=== PATIENT | female | born 1945 | race Caucasian/White ===

== ENCOUNTER 2017-09-25 07:41 | Inpatient (IN) | payer OTHER ==
--- NOTE | 2017-09-25 06:28 | PDHPUP ---
History & Physical Update H&P update statement: This history and physical update is based on an assessment of the patient which was completed after admission or registration (within 24 hours), but prior to the surgery/procedure. H&P update: H&P reviewed & patient examined, no change in patient's condition since H&P completed
[2017-09-25] MEDS ORDERED: CHLORHEXIDINE GLUC HIBICLENS 118 ML BTL TP ONE (08:05)
[2017-09-25] MEDS ORDERED: THROMBIN (BOVINE) 5,000 UNIT VIAL TP ONE (08:06)
[2017-09-25] MEDS ORDERED: BACITRACIN 50,000 UNITS/10 ML SYR IRR ONE (08:06)
[2017-09-25] MEDS ORDERED: BUPIVACAINE 0.25% 30 ML SDV ONE (08:06)
[2017-09-25] MEDS ORDERED: ceFAZolin 2 GM/SWFI 2 GM/20 ML SYR IVP ONE (08:07)
[2017-09-25] MEDS ORDERED: GABAPENTIN 300 MG CAP PO ONE (08:07)
[2017-09-25] MEDS ORDERED: ACETAMINOPHEN 500 MG TAB PO ONE (08:07)
[2017-09-25] MEDS ORDERED: LR 1,000 ML IV ONE (08:10)
--- NOTE | 2017-09-25 08:51 | PDANEPAE ---
ANE Past Medical History - Cardiovascular History Hx Hypertension: Yes Hx Arrhythmias: No Hx Chest Pain: No Hx Coronary Artery / Peripheral Vascular Disease: No Hx CHF / Valvular Disease: No Hx Palpitations: No Cardiovascular History Comment: on 2 diuretics/Benicar - Pulmonary History Hx COPD: No Hx Asthma/Reactive Airway Disease: Yes Hx Recent Upper Respiratory Infection: No Hx Oxygen in Use at Home: No Hx Sleep Apnea: No Sleep Apnea Screening Result - Last Documented: Negative Pulmonary History Comment: environmental/food allergies-managed w/inhalers - Neurologic History Hx Cerebrovascular Accident: No Hx Seizures: No Hx Dementia: No Neurologic History Comment: H/A -R frontal "getting worse over the years" due to neck pain. - Endocrine History Hx Diabetes: No Endocrine History Comment: hypothyroid - Renal History Hx Renal Disorders: No - Liver History Hx Hepatic Disorders: No - Neurological & Psychiatric Hx Hx Neurological and Psychiatric Disorders: Yes Neurological / Psychiatric History Comment: tingling L hand/arm. Pain R arm. - Cancer History Hx Cancer: Yes Cancer History Comment: L breast tx w/chemo and RADS 2000. - Congenital Disorder History Hx Congenital Disorders: No - GI History Hx Gastrointestinal Disorders: No Gastrointestinal History Comment: resection for diverticulitis - Other Health History Other Health History: Cramping, "zaps" in legs. glaucoma - Chronic Pain History Chronic Pain: Yes (R arm,cramping) - Surgical History Prior Surgeries: bilat cataracts '17. 3 level lumbar fusion. colon resection. lap mary anne '13. bilat total knees '13. L Br Lumpectomy/lymph dissection 2000. R rotator cuff '00. R Great toe sx. L carpal tunnel '83 ANE Review of Systems Review of Systems: - Exercise capacity METS (RN): 4 METS ANE Patient History - Allergies Allergies/Adverse Reactions: banana Allergy (Verified 09/04/17 11:04) Swelling/neck,face,throat Beef Containing Products [beef] Allergy (Verified 09/04/17 11:04) Hives Beta-Blockers (Beta-Adrenergic Bloc Allergy (Verified 09/04/17 11:04) "ASTHMA ATTACKS" corn Allergy (Verified 09/04/17 11:04) Hives cucumber Allergy (Verified 09/04/17 11:04) Swelling/neck,face,throat egg [eggs] Allergy (Verified 09/04/17 11:04) Swelling/neck,face,throat Fish Containing Products [fish] Allergy (Verified 09/04/17 11:04) Swelling/neck,face,throat Iodinated Contrast- Oral and IV Dye Allergy (Verified 09/04/17 11:04) Hives lidocaine Allergy (Verified 09/04/17 11:04) "ASTHMA ATTACKS" linezolid [From Zyvox] Allergy (Verified 09/04/17 11:04) Other-Enter Comments melon Allergy (Verified 09/04/17 11:04) Swelling/neck,face,throat mirtazapine [From Remeron] Allergy (Verified 09/04/17 11:04) "ASTHMA ATTACKS" mustard Allergy (Verified 09/04/17 11:04) Itching peanut Allergy (Verified 09/04/17 11:04) "ASTHMA ATTACKS" Penicillins Allergy (Verified 09/04/17 10:58) Other-Enter Comments shellfish derived Allergy (Verified 09/04/17 11:04) Swelling/neck,face,throat Sulfa (Sulfonamide Antibiotics) Allergy (Verified 09/04/17 10:58) Swelling/neck,face,throat Tetracyclines Allergy (Verified 09/25/17 08:50) Other-Enter Comments trimipramine [From Surmontil] Allergy (Verified 09/25/17 08:50) "ASTHMA ATTACKS" wheat Allergy (Verified 09/04/17 11:04) Other-Enter Comments EGGPLANT Allergy (Uncoded 09/04/17 11:04) Swelling/neck,face,throat - Home Medications Home Medications: Acetaminophen [Tylenol 325mg (*)] 650 mg PO Q6 PRN 09/04/17 [Last Taken Unknown] Ascorbic Acid [Vitamin C 500 mg (*)] 500 mg PO DAILY 09/04/17 [Last Taken Unknown] Budesonide/Formoterol 160/4.5 [Symbicort 160-4.5 Mcg Inh (*)] 2 puffs IH BID 04/13 [Last Taken Unknown] Cholecalciferol Vit D3 [Vitamin D3 2000 units tab (OTC)] 4,000 units PO DAILY [Last Taken Unknown] DULoxetine [Cymbalta 60 MG (*)] 120 mg PO DAILY 09/04/17 [Last Taken Unknown] Esomeprazole Mag Trihydrate [Nexium] 40 mg PO BIDMEAL 09/04/17 [Last Taken Unknown] Furosemide [Lasix 20 MG (*)] 20 mg PO DAILY 09/04/17 [Last Taken Unknown] Gabapentin [Neurontin 300 MG (*)] 300 mg PO HS 09/04/17 [Last Taken Unknown] Herbals/Supplements -Info Only 1 ea PO DAILY 09/04/17 [Last Taken Unknown] Levalbuterol Inhaler [Xopenex Hfa Inhaler (*)] 1 puffs IH TID PRN 09/04/17 [ Last Taken Unknown] Levothyroxine [Synthroid 50 mcg (*)] 50 mcg PO DAILY06 09/04/17 [Last Taken Unknown] Montelukast Sodium [Singulair 10 mg (*)] 10 mg PO DAILY@1800 09/04/17 [Last Taken Unknown] Olmesartan Medoxomil [Benicar] 40 mg PO DAILY18 09/04/17 [Last Taken Unknown] Potassium Cl [Klor-Con 20 meq (*)] 20 meq PO DAILY 09/04/17 [Last Taken Unknown] Ranitidine HCl [Zantac] 300 mg PO HS 09/04/17 [Last Taken Unknown] cycloSPORINE 0.05% [Restasis Opht Drops(*)] 1 drop EACHEYE BID 09/04/17 [Last Taken Unknown] valACYclovir [Valtrex (*)] 500 mg PO DAILY 09/04/17 [Last Taken Unknown] Hydrochlorothiazide 09/09/17 [Last Taken Unknown] Qvar 09/09/17 [Last Taken Unknown] - Smoking Hx Smoking Status: Never smoked ANE Labs/Vital Signs - Vital Signs Height: 157.48 cm Weight: 65.771 kg ANE Physical Exam - Airway Neck exam: FROM Mallampati Score: Class 2 Mouth exam: normal dental/mouth exam - Pulmonary Pulmonary: no respiratory distress - Cardiovascular Cardiovascular: regular rate and rhythym - ASA Status ASA Status: II ANE Anesthesia Plan Anesthesia Plan: general endotracheal anesthesia
[2017-09-25] MEDS ORDERED: MIDAZOLAM 2 MG/2 ML VIAL ONE ×2 (09:17)
[2017-09-25] MEDS ORDERED: PROPOFOL/EMULSION 500 MG/50 ML BOTTLE IV ONE ×2 (09:17→10:25)
[2017-09-25] MEDS ORDERED: DEXAMETHASONE 4 MG/ML VIAL ONE (09:18)
[2017-09-25] MEDS ORDERED: METOCLOPRAMIDE 10 MG/2 ML VIAL ONE (09:19)
[2017-09-25] MEDS ORDERED: ROCURONIUM 50 MG/5 ML VIAL ONE (09:19)
[2017-09-25] MEDS ORDERED: LEVALBUTEROL INHALER 200 PUFFS/15 GM MDI IH PRN (09:23)
[2017-09-25] MEDS ORDERED: ACETAMINOPHEN 325 MG TAB PO PRN (09:23)
[2017-09-25] MEDS ORDERED: ONDANSETRON 4 MG/2 ML VIAL IVP PRN ×2 (09:26→13:00)
[2017-09-25] MEDS ORDERED: LACTULOSE 20 GM/30 ML UDCUP PO PRN (09:26)
[2017-09-25] MEDS ORDERED: morphINE PCA 30 MG/30 ML PCA IV PRN (09:26)
[2017-09-25] MEDS ORDERED: diphenhydrAMINE 25 MG CAP PO PRN (09:26)
[2017-09-25] MEDS ORDERED: ONDANSETRON DISINTEGRATING 4 MG TAB PO PRN (09:26)
[2017-09-25] MEDS ORDERED: HYDROmorphone HCL/NS 0.5 MG/ML SYR IVP PRN (09:26)
[2017-09-25] MEDS ORDERED: MAGNESIUM HYDROXIDE 30 ML UDCUP PO PRN (09:26)
[2017-09-25] MEDS ORDERED: oxyCODONE IR 5 MG TAB PO PRN (09:26)
[2017-09-25] MEDS ORDERED: NALOXONE HCL 0.4 MG/ML INJ IVP PRN ×2 (09:26→13:00)
[2017-09-25] MEDS ORDERED: POLYETHYLENE GLYCOL 3350 17 GM PKT PO PRN (09:26)
[2017-09-25] MEDS ORDERED: BISACODYL 10 MG SUPP PR PRN (09:26)
[2017-09-25] MEDS ORDERED: NS W/ 20 KCl/L 1,000 ML IV SCH (09:30)
[2017-09-25] MEDS ORDERED: HYDROmorphONE/DILAUDID 2 MG/ML INJ IVP PRN (13:00)
[2017-09-25] MEDS ORDERED: MEPERIDINE 25 MG/ML SYR IVP PRN (13:00)
[2017-09-25] MEDS ORDERED: fentaNYL 100 MCG/2 ML INJ ONE (13:00)
[2017-09-25] MEDS ORDERED: ALBUTEROL 3 ML DEYVIAL IH PRN (13:00)
--- NOTE | 2017-09-25 13:02 | POSTANESTH ---
Post Anesthetic Evaluation Cardiovascular Status: Similar to Pre-Op Cond Respiratory Status: Similar to Pre-op Cond. Level of Consciousness/Mental Status: Mildly Sleepy, Arousable Pain Control: Adequate, Prn Tx Ordered Nausea/Vomiting Control: Adequate, Prn Tx Ordered Complications Possibly Related to Anesthesia: None Noted
[2017-09-25] MEDS: fentaNYL 100 MCG/2 ML INJ IVP PRN ×2 (13:05→13:34)
--- NOTE | 2017-09-25 13:17 | SOAPPROG ---
SOAP Progress Note Assessment/Plan: Post Op Visit: S: Awake and alert. NAD O: AFVSS/PERRL/EOMI +lt touch 5/5 BUE = CDI neck soft and supple A/P: 72 yo female that is s/p ACDF C4/5 and C6/7 with anterior plate C4-C7 -collar at all times -take medications as directed -post op xrays in am -call NS with any changes or issues Objective: Vital Signs Temp Pulse Resp BP Pulse Ox 37.0 C 111 H 16 126/81 H 95 09/25/17 08:55 09/25/17 08:55 09/25/17 08:55 09/25/17 08:55 09/25/17 08:55 ICD10 Worksheet Patient Problems: Problems Problem Status Onset Arthrodesis status Acute Cervical stenosis of spine Acute - ICD10 Problem Qualifiers (1) Cervical stenosis of spine (2) Arthrodesis status
[2017-09-25] MEDS ORDERED: ceFAZolin 2 GM/DEXTROSE 100 ML IV SCH (14:00)
--- NOTE | 2017-09-25 14:27 | GOP ---
[f rep st] OPERATIVE REPORT DATE OF OPERATION: 09/25/2017 SURGEON: Santy Ceballos MD [facility] OPERATOR: Alexander Naidu PA-C. PREOPERATIVE DIAGNOSIS: 1. Cervical spondylolisthesis, C4-5. 2. Cervical degenerative disk disease C6-7. 3. 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 4. Right and left (but right more than left) cervical radiculopathy. POSTOPERATIVE DIAGNOSIS: 1. Cervical spondylolisthesis, C4-5. 2. Cervical degenerative disk disease C6-7. 3. 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 4. Right and left (but right more than left) cervical radiculopathy. PROCEDURE PERFORMED: 1. Anterior cervical diskectomy with decompression and arthrodesis at C4-5 and C6-7 (CPT Code 00119, 05482). 2. Anterior cervical instrumentation, 4 levels, C4, C5, C6, C7 (CPT Code 33940). 3. Placement of biomechanical intervertebral device C4-5, C6-7 (CPT Code 31873 x2). 4. Microscope. 5. Same-incision bone graft harvest. FINDINGS: ESTIMATED BLOOD LOSS: 25 cc. 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 She had courtney ateral cervical radiculopathy, right more than left, and had evidence of neural foraminal compromise at C6-7 and C4-5. On her MRI, the vertebral artery anatomy on the right at C4-5 was quite medial, an d I did not want to do a wide right C4-5 foraminotomy through the front, but I still suggested ACDF, arthrodesis, and this should eliminate the problem at C4-5. C6-7 was more typical in the vertebral a natomy. The risk of esophageal injury, carotid injury, recurrent laryngeal nerve injury, hoarseness, dysphagia, adjacent segment disease was discussed. She knew there was a chance surgery would fail t o eliminate her pain and she wanted to proceed. DESCRIPTION OF PROCEDURE: The patient was taken to the operating room, placed in supine position. G eneral anesthesia was begun. A midline shoulder roll was placed. Care was taken to pad all points o f contact. Her neck was kept neutral, but the occiput was extended. She was sterilely prepped and d raped in usual fashion. I made a transverse incision on the right side of the neck. The subcutaneou s tissue was dissected using Bovie cautery down through platysma. We then used a combination of evelyn p and blunt dissection and worked our way down medial to the sternocleidomastoid and medial to the ca rotid sheath to the prevertebral space. There was a large neurovascular structure crossing from the carotid sheath medially, right in the middle of our exposure. We immediately were able to expose C6- 7. We wanted to expose C4-5 as well, and C5-6, but we made a separate window above this neurovascula r structure itself. We did not see any evidence of recurrent laryngeal nerve activity. Nevertheless , we completely preserved this structure. We dissected the longus colli muscles off the spine at C4- 5, 5-6, 6-7, and then placed a self-retaining retractor rostrally. We placed distraction pins at C4- 5, distracted there, and then under the microscope, removed the disk and the cartilaginous endplates. We drilled and harvested subchondral bone for autologous grafting purposes. The C5 vertebral body was exceptionally small, but C4 was a normal size vertebral body. We chose the 8 x 14 x 11 mm cage. It was packed with bone autograft. We then opened the posterior longitudinal ligament, decompressed the thecal sac and the neural foramina bilaterally, but again we were not very aggressive on the rig ht-hand side. We did not have any significant bleeding, but we were able to decompress the proximal portion of the right C5 root, and we went somewhat wider on the left-hand side. We packed the cage w ith bone autograft, inserted it at C4-5, and got a nice fit. We then removed our distraction pins, d istracted at C6-7, and did likewise here. Here, the disk was degenerative. We drilled and got rid o f all of the disk material itself. We then drilled and harvested subchondral bone at C6-7. We sized for the larger cage at that level, but I felt like it was going to be slightly too deep at 14 mm of depth, and we elected to go with a 7 x 17 x 11 mm cage. We selected the cage, packed it with autolog ously harvested bone dust, and then opened the posterior longitudinal ligament, decompressed the thec al sac and the neural foramina bilaterally. At this level, we decompressed on each side just slightl y beyond the C7 pedicle on each side. A nice decompression was obtained. We inserted the cage. We then chose a 40 mm Medtronic Zevo plate, placed a single screw at C4, a single screw at C7. I was avendano ppy with positioning of the plate. We placed 4 screws in the C5 and C6 vertebral bodies, and then se quentially tightened these simultaneously. We use 15, 15 and 15 mm screws there. We also used 15 mm screws at C7 and 15 mm screws at C4. At C6, we lost capture of the 3.5 mm screw and I replaced this with a 15 mm rescue screw. We shot x-rays, confirming all of the hardware positioning, and the sher ent's right-sided C6 screw was slightly long, extending just slightly beyond the posterior cortex of C6, so we removed this and used a 13 mm screw. There was now a rescue screw on the right at C6. Thi s single plate spanning from C4-C7 got some reduction of the spondylolisthesis at C4-5, and I was pre tty happy with the anatomical alignment of her neck, although there was not complete reduction becaus e of the small caliber of the C5 and C6 vertebral bodies, but it was still much improved alignment. We final tightened the screws and confirmed this with the people in the room. The locking mechanism had been applied at all 4 of the levels. We then it achieved meticulous hemostasis, placed 0.25% Mar brian with epinephrine in the wound, and then closed the incision in multiple layers using Vicryl sut ures. Steri-Strips were applied to the skin. The patient was reversed from anesthesia, extubated, t ransferred to recovery room in stable condition. COMPLICATIONS: None. /[id number]/MODL
--- NOTE | 2017-09-25 14:58 | PDMN ---
Medical Necessity Medical necessity: Pt meets IP criteria per PA; est los >2 mn s/p ACDF C4/5 & C6 /7 with anterior plate C4-C7; admit for further monitoring, post op xrays, Morphine FUR STYLIST, IVFs & therapies; per progress note & order 09/25/17
[2017-09-25] MEDS: HYDROCODONE/APAP 5/325 TAB PO PRN ×2 (16:06→19:53)
[2017-09-25] MEDS ORDERED: NON-FORMULARY NEW DRUG (Olmesartan Medoxomil [Benicar] 40 MG) PO SCH (18:00)
[2017-09-25] MEDS: OLMESARTAN MEDOXOMIL 20 MG TAB PO SCH (18:12)
[2017-09-25] MEDS: ceFAZolin 2 GM/SWFI 2 GM/20 ML SYR IVP SCH (18:13)
[2017-09-25] MEDS: MONTELUKAST SODIUM 10 MG TAB PO SCH (18:13)
[2017-09-25] MEDS: PANTOPRAZOLE SODIUM 40 MG TAB PO SCH (18:13)
[2017-09-25] MEDS: FAMOTIDINE 20 MG TAB PO SCH (19:54)
[2017-09-25] MEDS: SENNOSIDES/DOCUSATE SODIUM TAB PO SCH (19:57)
[2017-09-25] MEDS ORDERED: NON-FORMULARY NEW DRUG (Ranitidine Hcl [Zantac] 300 MG) PO SCH (21:00)
[2017-09-25] MEDS: BUDESONIDE/FORMOTEROL 160/4.5 60 PUFFS/MDI IH SCH (22:11)
[2017-09-25] MEDS: cycloSPORINE 0.05% 30 DROPERETTE/BOX EACHEYE SCH (22:11)
[2017-09-25] MEDS: BECLOMETHASONE DIPROPIONATE IH SCH (22:12)
[2017-09-25] MEDS: GABAPENTIN 300 MG CAP PO SCH (22:12)
[2017-09-26] MEDS: ceFAZolin 2 GM/SWFI 2 GM/20 ML SYR IVP SCH (01:05)
[2017-09-26] MEDS: HYDROCODONE/APAP 5/325 TAB PO PRN ×5 (01:05→22:10)
[2017-09-26] MEDS: METHOCARBAMOL 750 MG TAB PO PRN ×3 (04:50→21:04)
[2017-09-26] MEDS: LEVOTHYROXINE 50 MCG TAB PO SCH (04:51)
[2017-09-26 05:19] LABS: PLATELET COUNT 433 10^3/uL (150-400)
--- NOTE | 2017-09-26 08:03 | NEUSURGPN ---
Date of Surgery: 09/25/17 Post Op Day: 1 Assessment/Plan: Assessment: 72 yo female that is s/p ACDF C4/5 and C6/7 with anterior plate C4- C7 POD #1 Plan: -s/p ACDF: Pt states that she feels better after surgery. She has some expected neck pain -PT/OT/ST pending -collar at all times -take medications as directed -post op xrays this am -continue with current pain control -call NS with any changes or issues -pt understands and agrees -pt seen by Dr Ceballos as well Subjective: Awake and alert. NAD. Eating/drinking and voiding. No f/c/n/v/d. No avendano/chest /abd or gu complaints. Objective: AFVSS/PERRLA/EOMI +lt touch 5/5 BUE/BLE = CDI neck soft and supple Neuro Check Frequency: per routine Urinary Catheter in Place: No - Physician Discussed Patient with : Tucker Patient Seen by : Tucker Neurosurgery Physical Exam - Vitals, I&O, Labs I and O 09/25/17 09/26/17 09/27/17 05:59 05:59 05:59 Intake Total 2800 Output Total 1820 Balance 980 Weight 65.771 kg Intake: Oral (ml) 1050 IV Intake (ml) 1750 Output: Urine (ml) 1800 Catheter 1800 Estimated Blood Loss (ml) 20 Other: Number of Voids Catheter 1 Vital Signs Temp Pulse Resp BP Pulse Ox 36.6 C 91 16 111/67 95 09/26/17 04:00 09/26/17 04:00 09/26/17 04:00 09/26/17 04:00 09/26/17 04:00 Laboratory Results 09/26/17 04:35 09/26/17 04:35 ICD10 Worksheet Patient Problems: Problems Problem Status Onset Arthrodesis status Acute Cervical stenosis of spine Acute - ICD10 Problem Qualifiers (1) Cervical stenosis of spine (2) Arthrodesis status
[2017-09-26] MEDS: PANTOPRAZOLE SODIUM 40 MG TAB PO SCH ×2 (08:16→17:39)
[2017-09-26] MEDS: DULoxetine 60 MG CAP PO SCH (08:17)
[2017-09-26] MEDS: FAMOTIDINE 20 MG TAB PO SCH ×2 (08:17→20:49)
[2017-09-26] MEDS: valACYclovir 500 MG TAB PO SCH (08:17)
[2017-09-26] MEDS: SENNOSIDES/DOCUSATE SODIUM TAB PO SCH ×2 (08:17→20:49)
[2017-09-26] MEDS: FUROSEMIDE 20 MG TAB PO SCH (08:17)
[2017-09-26] MEDS: HYDROCHLOROTHIAZIDE 12.5 MG CAP PO SCH (08:17)
[2017-09-26] MEDS: BECLOMETHASONE DIPROPIONATE IH SCH ×3 (09:39→20:14)
[2017-09-26] MEDS: BUDESONIDE/FORMOTEROL 160/4.5 60 PUFFS/MDI IH SCH ×2 (09:39→20:21)
[2017-09-26] MEDS: cycloSPORINE 0.05% 30 DROPERETTE/BOX EACHEYE SCH ×2 (09:40→20:49)
[2017-09-26] MEDS: [UNRECOGNIZED DRUG - OTHER] IH PRN ×2 (09:51→20:14)
--- NOTE | 2017-09-26 10:34 | ASMTCMCOM ---
CM Note CM Note Notes: Chart reviewed. 72 year old femeale s/p c-spine surgery, Per therapy [facility] recommended . Patient has had previous experience with with [facility]. Her son Edgardo is bedside and will provide support until he returns to his home in [place]. CM to follow. Plan: dc likely tomorrow with [facility] PT and OT Date Signed: 09/26/2017 10:34 AM Electronically Signed By:Chitra Rose RN
[2017-09-26] MEDS: POTASSIUM CL 20 MEQ TAB PO SCH (11:19)
[2017-09-26] MEDS: MONTELUKAST SODIUM 10 MG TAB PO SCH (17:38)
[2017-09-26] MEDS: OLMESARTAN MEDOXOMIL 20 MG TAB PO SCH (17:39)
[2017-09-26] MEDS: GABAPENTIN 300 MG CAP PO SCH (20:50)
[2017-09-27] MEDS: HYDROCODONE/APAP 5/325 TAB PO PRN ×2 (04:59→11:58)
[2017-09-27] MEDS: LEVOTHYROXINE 50 MCG TAB PO SCH (04:59)
[2017-09-27] MEDS: BECLOMETHASONE DIPROPIONATE IH SCH (08:16)
[2017-09-27] MEDS: [UNRECOGNIZED DRUG - OTHER] IH PRN (08:16)
[2017-09-27] MEDS: BUDESONIDE/FORMOTEROL 160/4.5 60 PUFFS/MDI IH SCH (08:28)
--- NOTE | 2017-09-27 08:36 | NEUSURGPN ---
Assessment/Plan: Assessment: 72 yo female that is s/p ACDF C4/5 and C6/7 with anterior plate C4- C7 POD #2 Plan: -s/p ACDF: Pt states that she feels better after surgery. She has some expected neck pain -PT/OT/ST pending -collar at all times -take medications as directed -post op xrays show stable hardware -Dispo: plan for DC to home later today if continues to do well -pt d/w Dr Ceballos as well Subjective: Pt resting in bedside chair, had some breathing issues now better after inhaler. Eating applesauce. Objective: AAOx3 NAD VSS MAEx4 Motor 5/5 BUE C collar on Dressing cdi Urinary Catheter in Place: No - Physician Discussed Patient with : Tucker Neurosurgery Physical Exam - Vitals, I&O, Labs I and O 09/26/17 09/27/17 09/28/17 05:59 05:59 05:59 Intake Total 2800 2590 300 Output Total 1820 2350 Balance 980 240 300 Weight 65.771 kg Intake: Oral (ml) 1050 2590 300 IV Intake (ml) 1750 Output: Urine (ml) 1800 2350 Catheter 1800 Toilet 2350 Estimated Blood Loss (ml) 20 Other: Intake Quantity Yes Sufficient Number of Voids Catheter 1 Toilet 1 Vital Signs Temp Pulse Resp BP Pulse Ox 37.1 C 91 12 130/77 H 96 09/27/17 00:00 09/27/17 08:26 09/27/17 08:26 09/27/17 00:00 09/27/17 08:26 Laboratory Results 09/26/17 04:35 09/26/17 04:35 ICD10 Worksheet Patient Problems: Problems Problem Status Onset Arthrodesis status Acute Cervical stenosis of spine Acute
[2017-09-27] MEDS: PANTOPRAZOLE SODIUM 40 MG TAB PO SCH (08:38)
[2017-09-27] MEDS: FAMOTIDINE 20 MG TAB PO SCH (08:38)
[2017-09-27] MEDS: POTASSIUM CL 20 MEQ TAB PO SCH (08:39)
[2017-09-27] MEDS: DULoxetine 60 MG CAP PO SCH (08:39)
[2017-09-27] MEDS: valACYclovir 500 MG TAB PO SCH (08:39)
[2017-09-27] MEDS: HYDROCHLOROTHIAZIDE 12.5 MG CAP PO SCH (08:39)
[2017-09-27] MEDS: FUROSEMIDE 20 MG TAB PO SCH (08:39)
[2017-09-27] MEDS: SENNOSIDES/DOCUSATE SODIUM TAB PO SCH (08:42)
[2017-09-27] MEDS: cycloSPORINE 0.05% 30 DROPERETTE/BOX EACHEYE SCH (08:43)
[2017-09-27 09:07] VITALS: BP 120/65
--- NOTE | 2017-09-27 12:23 | PDHOMEO2F ---
Home Oxygen Face to Face Home Orders: I certify that a physician or a nurse practitioner or physician's parts room assistant has had a [id number] encounter with this patient on the date of this order due to the diagnosis listed, which relates to the primary reason the patient requires home oxygen. Alternative treatments have been tried, or considered, and deemed ineffective. It is anticipated that supplemental oxygen will result in improvement with treatment. Home oxygen qualifying diagnosis: reactive airway disease SpO2 on room air (%): 83 Frequency of home oxygen needed: during sleep Home oxygen liters per minute: 2 Home oxygen delivery device: nasal cannula Concentrator: Yes E-tanks for mobility and back up: No I certify that, based on these findings, the home oxygen is medically necessary for this patient for the following length of time. Length of time home oxygen needed: 1 week
--- NOTE | 2017-09-27 12:53 | PDIAF ---
- Diagnosis Code Status: Full Code - Medication Management Discharge Medications: Medications to Continue on Transfer Acetaminophen [Tylenol 325mg (*)] 650 mg PO Q6 PRN 09/04/17 [Last Taken 10:00] Ascorbic Acid [Vitamin C 500 mg (*)] 500 mg PO DAILY 09/04/17 [Last Taken ] Budesonide/Formoterol 160/4.5 [Symbicort 160-4.5 Mcg Inh (*)] 2 puffs IH BID 04/13 [Last Taken 09/25/17 06:30] Cholecalciferol Vit D3 [Vitamin D3 2000 units tab (OTC)] 4,000 units PO DAILY [Last Taken 09/18/17] DULoxetine [Cymbalta 60 MG (*)] 120 mg PO DAILY 09/04/17 [Last Taken 09/25/17 06 :00] Esomeprazole Mag Trihydrate [Nexium] 40 mg PO BIDMEAL 09/04/17 [Last Taken 09/24 17:00] Furosemide [Lasix 20 MG (*)] 20 mg PO DAILY 09/04/17 [Last Taken 09/24/17 14:00] Gabapentin [Neurontin 300 MG (*)] 300 mg PO HS 09/04/17 [Last Taken 09/24/17 23: 00] Levothyroxine [Synthroid 50 mcg (*)] 50 mcg PO DAILY06 09/04/17 [Last Taken 07/14 03:30] Montelukast Sodium [Singulair 10 mg (*)] 10 mg PO DAILY@1800 09/04/17 [Last Taken 09/24/17 18:00] Olmesartan Medoxomil [Benicar] 40 mg PO DAILY18 09/04/17 [Last Taken 09/24/17 22 :00] Potassium Cl [Klor-Con 20 meq (*)] 20 meq PO DAILY 09/04/17 [Last Taken 17:00] Ranitidine HCl [Zantac] 300 mg PO HS 09/04/17 [Last Taken 09/24/17 22:00] cycloSPORINE 0.05% [Restasis Opht Drops(*)] 1 drop EACHEYE BID 09/04/17 [Last Taken 09/24/17 22:30] valACYclovir [Valtrex (*)] 500 mg PO DAILY 09/04/17 [Last Taken 09/24/17 18:00] Beclomethasone Dipropionate 1 puffs IH BID 09/25/17 [Last Taken Unknown] Hydrochlorothiazide [HCTZ (*)] 12.5 mg PO DAILY 09/25/17 [Last Taken 09/24/17] Levosalbutamol 50mcg/Inh 1 puffs IH TID PRN 09/25/17 [Last Taken Unknown] Hydrocodone/APAP 5/325 [[place] 5/325 (*)] 1 - 2 tab PO Q4HRS PRN #30 tab [Last Taken Unknown] Methocarbamol [Robaxin 750 mg (*)] 750 mg PO QID PRN #60 tab 09/27/17 [Last Taken Unknown] Discharge Medications: Refer to the Discharge Home Medication list for PRN reason. - Orders Services needed: Home Care, Physical Therapy, Occupational Therapy Home Care Face to Face: I certify that this patient was under my care and that I had the required [id number] encounter meeting the encounter requirements on the discharge day. My findings support the fact that the patient is homebound as defined in Home Care Face to Face Continued: CMS Chapter 7 Medicare Benefits Manual 30.1.1 , The condition of the patient is such that there exists a normal inability to leave home and consequently, leaving home would require a considerable and taxing effort. Diet Recommendation: no restrictions on diet Diet Texture: Dysphagia 3 - Advanced - Moist, Bite-Size, Thin Liquids, Meds Whole in Puree, Meds Crushed in Puree Additional Instructions: No bending/lifting/twisting Wear cervical collar 5-10lb weight limit Follow up in 2-3 weeks Call with any issues - Follow Up Care Current Providers and Referrals: CLARISSA PADRON [Primary Care Provider] - Shivam Ceballos MD [Medical Doctor] - (follow up in 10-14 days, call for appt)
--- NOTE | 2017-09-27 14:16 | ASMTCMCOM ---
CM Note CM Note Notes: Patient medically cleared for discharge. Final orders via allscripts. Plan ; Home with home health Date Signed: 09/27/2017 02:15 PM Electronically Signed By:Chitra Rose RN
--- NOTE | 2017-09-27 16:32 | ASDISCHSUM ---
Discharge Information Plan Status:Home with Home Health Medically Cleared to Leave: Discharge Date:09/27/2017 03:42 PM CM D/C Disposition:Home Health Service [facility] D/C Disposition:[id number] Projected Discharge Date:09/27/2017 11:00 AM Transportation at D/C:Family Discharge Delay Reason: Follow-Up Date:09/27/2017 11:00 AM Discharge Slot: Final Diagnosis: Placement Information Referral Type:*Home Health Care Services Referral ID:[id number] Provider Name:[facility] Address 1:[address] [facility] Phone Number: Address 2: Fax Number: City:[place] Selection Factors: State:[place] Patient Contact Information Contact Name:CHELO Relationship:Son Address: Work Phone: City: [facility] Phone: [facility] Code: Email: Financial Information Financial Class:Medicare Primary Plan Desc:MEDICARE INPATIENT Primary Plan Number:[id number] Secondary Plan Desc:[employer] Secondary Plan Number:[id number] Assessment Information [facility] CM Progress Note CM Note CM Note Notes: Chart reviewed. 72 year old femeale s/p c-spine surgery, Per therapy [facility] recommended . Patient has had previous experience with with [facility]. Her son Edgardo is bedside and will provide support until he returns to his home in [place]. CM to follow. Plan: dc likely tomorrow with [facility] PT and OT Date Signed: 09/26/2017 10:34 AM Electronically Signed By:Chitra Rose RN [facility] CM Progress Note CM Note CM Note Notes: Patient medically cleared for discharge. Final orders via allscripts. Plan ; Home with home health Date Signed: 09/27/2017 02:15 PM Electronically Signed By:Chitra Rose RN Intervention Information Intervention Type:*IM-Signed Date of Service:09/27/2017 02:40 PM Patient Type:Inpatient Staff Member:Rosy Jeff Hours: Discipline: Severity: Comment:
[2017-09-28] MEDS ORDERED: ENOXAPARIN 40 MG/0.4 ML SYR SC SCH (09:00)
== END 2017-09-27 15:42 | disposition home health service (06) | DRG 473 ==
LOC: F3N 07:41 → OBSVTOIN 09:27 → F3N 14:40
PROVIDERS: ADMIT Neurological Surgery; ATTEND Neurological Surgery
PROC: 0RG20A0 Fusion of 2 or more Cervical Vertebral Joints with Interbody Fusion Device, Anterior Approach, Anterior Column, Open Approach (ICD-10-PCS; principal; 2017-09-25 09:30)
PROC: 01N10ZZ Release Cervical Nerve, Open Approach (ICD-10-PCS; principal; 2017-09-25 09:30)
PROC: 0ST20ZZ Resection of Lumbar Vertebral Disc, Open Approach (ICD-10-PCS; principal; 2017-09-25 09:30)
DX: M43.12 Spondylolisthesis, cervical region (principal); M50.123 Cervical disc disorder at C6-C7 level with radiculopathy; Q76.49 Other congenital malformations of spine, not associated with scoliosis
CPT/HCPCS: 92526-GN; 92610-GN; 97116-GP; 97161-GP; 97165-GO; 97535-GO; C1713; G8978-GP-CJ; G8979-GP-CI; G8980-GP-CI; G8987-GO-CK; G8988-GO-CI; G8989-GO-CI; G8996-GN-CI; G8997-GN-CH; G8998-GN-CI; J0171; J0690; J1100; J2250; J2704; J2765; J3010